=== PATIENT | female | born 2000 | race Caucasian/White ===

== ENCOUNTER 2021-10-21 00:12 | Emergency (ER) | payer SELFPAY | END 2021-10-21 02:47 | disposition home or self-care (01) | LOC: MW.ED 00:12 | DX: A60.00 Herpesviral infection of urogenital system, unspecified (principal) | CPT/HCPCS: 36415; 87529; 99283 ==

== ENCOUNTER 2022-01-30 13:27 | Emergency (ER) | payer SELFPAY | END 2022-01-30 17:44 | disposition home or self-care (01) | LOC: MW.ED 13:27 | DX: Z20.6 Contact with and (suspected) exposure to human immunodeficiency virus [HIV] (principal); Z71.1 Person with feared health complaint in whom no diagnosis is made | CPT/HCPCS: 36415; 87389; 99283 ==